=== PATIENT | female | born 1960 | race Caucasian/White ===

== ENCOUNTER 2018-07-10 07:12 | Day surgery (SDC) | payer OTHER ==
[2018-07-03 08:01] VITALS: BMI 28.9
[2018-07-10] MEDS ORDERED: Ciprofloxacin 0.3% OPTH SOLN ONE (08:45)
[2018-07-10] MEDS ORDERED: Midazolam 2 MG/2 ML VIAL ONE (08:58)
[2018-07-10] MEDS ORDERED: Propofol 10 mg/ml Inj (20 ML) ONE (08:58)
[2018-07-10] MEDS ORDERED: Ciprofloxacin 0.3% OPTH SOLN AU ONE (09:27)
[2018-07-10] MEDS ORDERED: HYDROmorphone 0.5 mg/0.5 ml ISec IVP PRN (09:42)
[2018-07-10] MEDS ORDERED: Lactated Ringer's 1,000 ML IV SCH (09:45)
--- NOTE | 2018-07-10 09:45 | PCM.SURG1 ---
Surgeon's Initial Post Op Note - Surgeon's Notes Surgeon: Dr. Sewell Environmental Professional: Dr. Dave PGY3 Type of Anesthesia: General LMA Pre-Operative Diagnosis: Meniers Operative Findings: See operative dictation Post-Operative Diagnosis: Meniers Operation Performed: Bilateral tympanostomy, chemical labrynthectomy Specimen/Specimens Removed: None Estimated Blood Loss: EBL {In ML}: 0 Blood Products Given: N/A Post-Op Condition: Good Date of Surgery/Procedure: 07/10/18 Time of Surgery/Procedure: 09:45
[2018-07-10] MEDS ORDERED: FOLIC ACID PO SCH (10:00)
[2018-07-10] MEDS ORDERED: LUTEIN PO SCH (10:00)
[2018-07-10] MEDS ORDERED: MULTIVIT MIN PO SCH (10:00)
[2018-07-10] MEDS ORDERED: [UNRECOGNIZED DRUG - OTHER] PO SCH (10:00)
[2018-07-10 10:18] VITALS: O2SAT 99
[2018-07-10 10:44] VITALS: RESP 18; TEMP 97.3
[2018-07-10 11:02] VITALS: BP 132/76; PULSE 69
--- NOTE | 2018-07-10 20:48 | OP ---
Copied To: Jeff Sewell DO Attending MD: Jeff Sewell DO PROCEDURE DATE: 07/10/2018 PREOPERATIVE DIAGNOSIS: Meniere's disease. POSTOPERATIVE DIAGNOSIS: Meniere's disease. PROCEDURES: Bilateral tympanostomy with insertion of ventilation tubes and chemical labyrinthectomy. SURGEON: Jeff Seewll DO TYPE OF ANESTHESIA: General. ESTIMATED BLOOD LOSS: Minimal. DESCRIPTION OF PROCEDURE: This is a 57-year-old white female with severe Meniere's disease who underwent general anesthesia via endotracheal tube intubation. The left external auditory canal and tympanic membranes were examined with the use of the operating scope. A myringotomy incision was made in the posteroinferior quadrant in a radial fashion and an Hinton ventilation tube was inserted through the myringotomy incision. A 6 mg of Decadron was inserted through the tympanostomy tube and the patient was left in the recumbent position for approximately 10 minutes. The same procedure was then done on the contralateral side in an identical fashion. The patient tolerated the procedure well and was taken from the operating room to the recovery room in stable condition. Jeff Sewell DO
== END 2018-07-10 11:25 | disposition home or self-care (01) ==
LOC: SDS 07:12
PROVIDERS: ATTEND Otolaryngology
DX: H81.03 Meniere's disease, bilateral (principal)
CPT/HCPCS: 69436; J1170; J1100; J2250; J2704; J3010; J7120